=== PATIENT | female | born 1955 | race Caucasian/White ===

== ENCOUNTER 2017-03-01 21:47 | Emergency (ER) | payer OTHER ==
[~2017-03-01] VITALS: Ht 170.2 cm; Wt 89.3 kg
[~2017-03-01 21:47] MED LIST: ACID CONTROL150 MG PO; ADVAIR 100-501 EACH IH; ADVAIR 500/501 DISK IH; ALAVERT10 M1 PO; ALAVERT10 MG PO; ALLERGY MEDICAT25 M1 PO; ALLERGY RELIEF10 M1 PO; ANTIVERT25 MG PO; Advair HFA 230/21 IH; Antivert PO; BENADRYL ALLERG25 MG PO; BENADRYL50 MG PO; Benadryl PO; CARBAMAZEPINE PO; CARBAMAZEPINE100 MG PO; CARBAMAZEPINE200 MG PO; CARBAMAZEPINE400 MG PO; CIPRO HC OTIC S10 ML LEFT EAR; CIPRO500 MG PO; CLARITIN10 M3 PO; CLEAR EYES REDN30 M1 LEFT EYE; COLACE100 MG PO; COMBIVENT200 INHALA IH; COMPLETE PO; Claritin,Alavart PO; DILANTIN INFATA50 MG PO; DILANTIN100 MG PO; DILANTIN50 MG PO; DULERA 200 MCG/13 GM IH; DUONEB 2.5-0.5 M3 ML AEROSOL; DUONEB 2.5-0.5 M3 ML IH; Dilantin PO; FLONASE16 G1 BOTH NARES; FLUTICASONE; FLUTICASONE PRO16 GM BOTH NARES; GLUCOPHAGE500 MG PO; HYDROCHLOROTHIA25 MG PO; HYDROCODON-ACE1 EAC7 PO; HYDRODIURIL,ORE25 MG PO; HYDROXYZINE HCL25 MG PO; IPRATROPIU0.2 MG/1 M IH; K-DUR10 ME2 PO; K-DUR20 MEQ PO; K-Dur PO; KEPPRA500 MG PO; KEPPRA750 MG PO; Keppra PO; LEVETIRACETAM750 MG PO; LORATADINE10 M2 PO; MACROBID100 MG PO; MICRO-K10 ME1 PO; MICRO-K10 ME2 PO; NASACORT AQ16.5 GM NS; NITROFURANTOIN100 MG PO; ORAL ANALGESIC9 GM MM; PHENYTOIN SODI100 M1 PO; POTASSIUM CHLO10 MEQ PO; PREDNISONE10 MG PO; PROAIR HFA8.5 GM IH; PROCTOZONE-HC30 GM RC; PROMETHAZINE HC25 M1 PO; PROVENTIL2.5 MG/3 M IH; Proventil,Ventolin H IH; RANITIDINE HCL150 M1 PO; RANITIDINE HCL150 MG PO; TEGRETOL XR400 MG PO; TEGRETOL-XR,CA400 MG PO; TEGRETOL100 MG PO; TEGretol PO; TEGretol-XR,Carbatro PO; TYLENOL EXTRA500 MG PO; ULTRAM50 MG PO; VALIUM5 MG PO; VENTOLIN HFA18 GM IH; VITAMIN C1000 MG PO; VITAMIN E400 UNIT PO; XANAX0.5 MG PO; ZOFRAN ODT4 MG PO; ZOFRAN4 MG PO; ZYVOX600 MG PO; Zithromax PO; [UNRECOGNIZED DRUG - OTHER]
[2017-03-01] MEDS ORDERED: ESCITALOPRAM OX10 MG PO (22:18)
[2017-03-01] MEDS ORDERED: PULMICORT FLE180 MCG IH (22:19)
[2017-03-01] MEDS ORDERED: PREMARIN VAGI42.5 GM VG (22:20)
[2017-03-01] MEDS ORDERED: CETIRIZINE HCL10 M2 PO (22:20)
[2017-03-01] MEDS ORDERED: LEVETIRACETAM750 MG PO (22:20)
[2017-03-01] MEDS ORDERED: DILANTIN100 MG PO (22:20)
[2017-03-01] MEDS ORDERED: ESCITALOPRAM OX20 MG PO (22:21)
[2017-03-01] MEDS ORDERED: CYCLOBENZAPRINE5 MG PO (22:24)
[2017-03-01 22:34] LABS: HEMATOCRIT 35.8 % (36.0-46.0); MCH 29.2 PG (29.0-34.0); MCHC 34.6 G/DL (30.0-36.0); MCV 84.2 FL (83-99); MEAN PLAT.VOLUME 9.8 uM^3 (9.5-12.4); PLATELET COUNT 243 K/uL (156-360); RBC DIS.WIDTH-CV 12.8 % (11.8-14.6); RBC DIS.WIDTH-SD 38.7 % (39-53); RED BLOOD COUNT 4.25 M/uL (3.80-5.20); WHITE BLOOD COUNT 5.6 K/uL (4.1-10.2)
[2017-03-01 23:03] LABS: ANION GAP 9 MEQ/L (2-14); CHLORIDE 103 MEQ/L (99-109); POTASSIUM 3.5 MEQ/L (3.7-5.4); SAMPLE HEMOLYSIS CHECK 0; SAMPLE ICTERIC CHECK 0; SAMPLE LIPEMIA CHECK 1; SODIUM 139 MEQ/L (136-147)
[2017-03-01 23:08] LABS: GFR ESTIMATE (CALCULATED) > 59 mL/min/; GLUCOSE 96 mg/dL (70-99); UREA NITROGEN (BUN) 6 mg/dL (9-23)
[2017-03-02] MEDS ORDERED: LIDODERM 5% P1 PATCH TD (00:52)
[2017-03-02 01:07] VITALS: BP 135/69
== END 2017-03-02 01:08 | disposition home or self-care (01) ==
LOC: EME → EDBD 21:47 → EME 03-02 01:08
PROVIDERS: Emergency Medicine
DX: G40.909 Epilepsy, unspecified, not intractable, without status epilepticus (principal); M25.551 Pain in right hip; W18.30XA Fall on same level, unspecified, initial encounter; Z86.73 Personal history of transient ischemic attack (TIA), and cerebral infarction without residual deficits; K21.9 Gastro-esophageal reflux disease without esophagitis; J45.909 Unspecified asthma, uncomplicated; I10 Essential (primary) hypertension; F41.9 Anxiety disorder, unspecified; F32.9 Major depressive disorder, single episode, unspecified; E11.9 Type 2 diabetes mellitus without complications; Z87.891 Personal history of nicotine dependence; Z88.0 Allergy status to penicillin; Z88.2 Allergy status to sulfonamides
CPT/HCPCS: 70450; 73502; 80048; 80185; 85027; 93005; 99281; 99285; J2250

== ENCOUNTER 2017-08-26 18:22 | Emergency (ER) | payer OTHER ==
[~2017-08-26] VITALS: Ht 170.2 cm; Wt 75.2 kg
[~2017-08-26 18:22] MED LIST changes: +CETIRIZINE HCL10 M2 PO; +CYCLOBENZAPRINE5 MG PO; +ESCITALOPRAM OX10 MG PO; +ESCITALOPRAM OX20 MG PO; +LIDODERM 5% P1 PATCH TD; +PREMARIN VAGI42.5 GM VG; +PULMICORT FLE180 MCG IH
[2017-08-26 19:33] LABS: HEMATOCRIT 37.6 % (36.0-46.0); HEMOGLOBIN 12.9 G/DL (11.9-15.5); MCH 29.4 PG (29.0-34.0); MCHC 34.3 G/DL (30.0-36.0); MCV 85.6 FL (83-99); PLATELET COUNT 207 K/uL (156-360); RBC DIS.WIDTH-CV 12.9 % (11.8-14.6); RED BLOOD COUNT 4.39 M/uL (3.80-5.20); WHITE BLOOD COUNT 3.5 K/uL (4.1-10.2)
[2017-08-26 19:43] LABS: CHLORIDE 105 mEq/L (99-109); POTASSIUM 3.6 mEq/L (3.7-5.4); SODIUM 139 mEq/L (136-147)
[2017-08-26 19:45] LABS: GLUCOSE 100 mg/dL (70-99)
[2017-08-26 19:49] LABS: CREATININE 0.8 mg/dL (0.6-1.3); GFR ESTIMATE (CALCULATED) > 59 mL/min/
[2017-08-26 19:50] LABS: UREA NITROGEN (BUN) 10 mg/dL (9-23)
[2017-08-26] MEDS ORDERED: PHENERGAN DM SYR1 ML PO (20:11)
[2017-08-26] MEDS ORDERED: ZITHROMAX250 MG PO (20:11)
[2017-08-26 20:59] VITALS: BP 163/75
== END 2017-08-26 21:03 | disposition home or self-care (01) ==
LOC: EME 18:22
DX: J20.9 Acute bronchitis, unspecified (principal); R51 Headache; I10 Essential (primary) hypertension; J45.909 Unspecified asthma, uncomplicated; F32.9 Major depressive disorder, single episode, unspecified; E11.9 Type 2 diabetes mellitus without complications; G43.909 Migraine, unspecified, not intractable, without status migrainosus; K21.9 Gastro-esophageal reflux disease without esophagitis; D64.9 Anemia, unspecified; Z86.73 Personal history of transient ischemic attack (TIA), and cerebral infarction without residual deficits; Z88.8 Allergy status to other drugs, medicaments and biological substances; Z88.6 Allergy status to analgesic agent; Z88.5 Allergy status to narcotic agent; Z88.0 Allergy status to penicillin; Z87.891 Personal history of nicotine dependence
CPT/HCPCS: 71046; 80048; 85027; 93005; 99281; 99284; J1100; J2765; J7030

== ENCOUNTER 2017-09-11 08:45 | Emergency (ER) | payer OTHER ==
[~2017-09-11] VITALS: Ht 170.2 cm; Wt 79.5 kg
[~2017-09-11 08:45] MED LIST changes: +PHENERGAN DM SYR1 ML PO; +ZITHROMAX250 MG PO
[2017-09-11 10:25] LABS: HEMATOCRIT 40.3 % (36.0-46.0); HEMOGLOBIN 14.2 G/DL (11.9-15.5); MCH 29.5 PG (29.0-34.0); MCHC 35.2 G/DL (30.0-36.0); MCV 83.8 FL (83-99); PLATELET COUNT 237 K/uL (156-360); RBC DIS.WIDTH-CV 12.7 % (11.8-14.6); RBC DIS.WIDTH-SD 38.5 % (39-53); RED BLOOD COUNT 4.81 M/uL (3.80-5.20); WHITE BLOOD COUNT 12.1 K/uL (4.1-10.2)
[2017-09-11 10:35] LABS: CHLORIDE 107 mEq/L (99-109); POTASSIUM 4.1 mEq/L (3.7-5.4); SODIUM 140 mEq/L (136-147)
[2017-09-11 10:36] LABS: GLUCOSE 129 mg/dL (70-99)
[2017-09-11 10:40] LABS: CREATININE 0.8 mg/dL (0.6-1.3); GFR ESTIMATE (CALCULATED) > 59 mL/min/
[2017-09-11 10:41] LABS: UREA NITROGEN (BUN) 10 mg/dL (9-23)
[2017-09-11 12:45] LABS: APPEARANCE CLEAR ((CLEAR)); BILIRUBIN NEGATIVE; BLOOD NEGATIVE; COLOR YELLOW ((YELLOW)); GLUCOSE (STRIP) NEGATIVE; KETONES NEGATIVE; LEUKOCYTES TRACE; NITRITE NEGATIVE; PROTEIN (STRIP) 30; SPECIFIC GRAVITY 1.019 (1.000-1.030); UROBILINOGEN 0.2 MG/DL (0.2-1.0)
[2017-09-11 12:57] LABS: BACTERIA NONE SEEN /HPF; EPITHELIAL CELLS RARE /HPF; HYALINE CASTS 0-5 /LPF; MUCUS 2+ /LPF; RED BLOOD CELLS 0-5 /HPF (0-5); WHITE BLOOD CELLS 0-5 /HPF (0-5)
[2017-09-11 13:00] VITALS: BP 143/70
[2017-09-11] MEDS ORDERED: ZOFRAN ODT8 MG PO (14:09)
== END 2017-09-11 15:55 | disposition home or self-care (01) ==
LOC: EME 08:45
PROVIDERS: Physician Assistant
DX: A08.4 Viral intestinal infection, unspecified (principal); G40.909 Epilepsy, unspecified, not intractable, without status epilepticus; E11.9 Type 2 diabetes mellitus without complications; I10 Essential (primary) hypertension; K58.0 Irritable bowel syndrome with diarrhea; K21.9 Gastro-esophageal reflux disease without esophagitis; F32.9 Major depressive disorder, single episode, unspecified; J45.909 Unspecified asthma, uncomplicated; Z86.73 Personal history of transient ischemic attack (TIA), and cerebral infarction without residual deficits; Z90.49 Acquired absence of other specified parts of digestive tract; Z88.6 Allergy status to analgesic agent; Z88.5 Allergy status to narcotic agent; Z88.8 Allergy status to other drugs, medicaments and biological substances; Z87.891 Personal history of nicotine dependence
CPT/HCPCS: 80048; 80185; 81003; 85027; J2060; J2270; J2405; J7030